=== PATIENT | male | born 1955 | race Caucasian/White ===

== ENCOUNTER → 2023-10-09 | Outpatient (CLI) | payer BC ==
[~2023-10-09] MED LIST: ALBU90OI6 INH; AZIT250 PO; CODGUAEL PO; GABA100 PO; RXHYD5325 PO; SULTRIDS PO; TRAM50 PO; VIEKIRA PAK1 EACH; [UNRECOGNIZED DRUG - OTHER]
[2023-10-23 14:08] LABS: BRUSHITE 1.79 ratio (0.00-3.00); CALCIUM OXALATE 4.69 ratio (0.00-6.00); CALCIUM, URINE 10.1 mg/dL (Not Estab.); CALCIUM, URINE 161.6 mg/24 hr (0.0-320.0); CHLORIDE URINE 43 (52-264); CITRIC ACID (CITRATE) 87 mg/L (Not Estab.); CITRIC ACID(CITRATE) 139 mg/24 hr (320-1240); CREATININE, URINE 1067.2 mg/24 hr (1000.0-2000.0); CREATININE, URINE 66.7 mg/dL (Not Estab.); MAGNESIUM, URINE 5.9 mg/dL (Not Estab.); MONOSODIUM URATE 0.97 ratio (0.00-4.00); OSMOLALITY, URINE 369 (300-900); SODIUM, URINE 39 mmol/L (Not Estab.); SODIUM, URINE 62 (58-337); STRUVITE 0.04 ratio (0.00-1.00); URIC ACID 0.62 ratio (0.00-1.20); URINE VOLUME 1600 mL/24 hr (800-1800); URINE VOLUME (PRESERVATIVE) 1600 mL/24 hr (800-1800)
== END ==
LOC: LAB SHORT 15:55 → LAB 15:55
PROVIDERS: Physician Assistant
DX: N20.0 Calculus of kidney (principal)
CPT/HCPCS: 81003; 82131; 82140; 82340; 82436; 82507; 82570; 83735; 83935; 83945; 84105; 84133; 84300; 84392; 84560